=== PATIENT | male | born 1985 | race Caucasian/White ===

== ENCOUNTER 2022-07-01 14:17 | Emergency (ER) | payer OTHER, SELFPAY ==
--- NOTE | ~2022-07-01 | CT_ITS ---
EXAMINATION: CT facial bones w con DATE: 07/01/2022 18:28 INDICATION: Left periorbital swelling. TECHNIQUE: Computed tomography (CT) of the facial bones and maxillofacial region was performed with 7 5 mL Omnipaque 350 intravenous contrast. Automated exposure control and iterative reconstruction tech [employer] were employed. The dose-length product was 311.67 mGy-cm. COMPARISON: None. FINDINGS: There is left cheek soft tissue swelling. There are mildly enlarged left submandibular and left high internal jugular chain lymph nodes, likely reactive. The orbits are normal. There is mild m ucosal thickening in the paranasal sinuses. The mastoid air cells are normal. There are carious lesio ns involving most of the teeth. There are periapical lucencies around numerous teeth with breech of t he cortex of the alveolar process at numerous sites. Superficial to tooth 12, there is a 10 x 5 x 15 mm abscess. IMPRESSION: 1. Extensive dental disease with 10 x 5 x 15 mm abscess superficial to tooth 12. Reviewed, dictated and finalized at location [facility]. [facility] IMPRESSION: 1. Extensive dental disease with 10 x 5 x 15 mm abscess superficial to tooth 12 .
[2022-07-01 14:44] VITALS: BP 141/92; PULSE 105; RESP 18; TEMP 36.6; O2SAT 97
--- NOTE | 2022-07-01 17:27 | ED.GENADULT ---
HPI - General Adult General Chief complaint: Unspecified Stated complaint: facial swelling Time Seen by Provider: 07/01/22 17:19 History of Present Illness HPI narrative: 36-year-old male here for evaluation of swelling and pain around his left orbit. Patient states that he was diagnosed with a dental infection at outside hospital yesterday. He was given clindamycin and tramadol, but states that his symptoms have not improved. States that he woke up this morning with swelling around his left eye, worsening pain in his oral region. He denies visual changes, trismus, fevers, chills, nausea, vomiting. He has follow-up with a dentist but states he cannot wait due to pain. Related Data Allergies Allergy/AdvReac Type Severity Reaction Status Date / Time No Known Allergies Allergy Verified 07/01/22 17:22 Review of Systems Review of Systems: Gen.: Denies fevers or chills Eyes: Denies eye pain or visual change ENT: Reports left periorbital pain and swelling, left-sided facial swelling Respiratory: Denies shortness of breath or cough CV: Denies chest pain or palpitations GI: Denies abdominal pain nausea, emesis or diarrhea denies burning, urgency, frequency or hematuria Musculoskeletal: Denies back pain or muscle pain Neuro: Denies numbness, tingling, weakness or focal weakness Skin: Denies rash Except as documented, all other systems reviewed and negative [facility] Past Medical History Medical History Injury of gallbladder during surgery Social History Social History Smoking status: Never smoker Alcohol intake: current Exam Narrative: APPEARANCE: Uncomfortable appearing. Head: Normocephalic and atraumatic. EYES: Erythema and edema around the left orbit, extraocular movements are intact, no proptosis NOSE: No nasal drainage EARS: External ear normal in appearance THROAT: Poor dentition throughout. Patient has numerous cracked and carious teeth. No visible periapical abscess. No trismus. NECK: Supple. No adenopathy, no masses. RESPIRATORY: Airway patent, respirations nonlabored. Clear to auscultation bilaterally, no rales, rhonchi, wheezing. CARDIOVASCULAR: Regular rate and rhythm without murmurs, rubs, or gallops. ABDOMINAL: Normoactive bowel sounds. Soft, nontender, nondistended. No rebound tenderness or guarding. MUSCULOSKELETAL: Extremities are warm and well-perfused. Moves all extremities well. No edema. NEURO: Normal speech. No focal neurologic deficits. SKIN: Skin is warm and dry. No rashes. PSYCHIATRIC: Normal affect/mood. Course Vital Signs Vital signs: Vital Signs Temperature 97.8 F 07/01/22 14:44 Pulse Rate 105 H 07/01/22 14:44 Respiratory Rate 18 07/01/22 14:44 Blood Pressure 141/92 H 07/01/22 14:44 Pulse Oximetry 97 07/01/22 14:44 Oxygen Delivery Room Air 07/01/22 14:44 Temperature 97.8 F 07/01/22 14:44 Pulse Rate 105 H 07/01/22 14:44 Respiratory Rate 18 07/01/22 14:44 Blood Pressure 141/92 H 07/01/22 14:44 Pulse Oximetry 97 07/01/22 14:44 Oxygen Delivery Room Air 07/01/22 14:44 Procedures Abscess I/D oral: Date of Incision: 07/01/22 Time of Incision: 18:59 Side (if applicable): left (periapical abscess above tooth #12) Technique: needle aspiration Amount of fluid expressed (mL): 5 Irrigation: Yes I&D Results: Pus and Blood Medical Decision Making MDM Narrative Medical decision making narrative: 36-year-old male here for evaluation of left-sided facial swelling after being diagnosed with a dental abscess at outside hospital. Patient is tolerating his secretions, is nontoxic-appearing, although does have a significant amount of left-sided facial swelling. He has a white count of 11.9. His lactic is negative. He was given Toradol, fluids and antibiotics in the ED with marked improvement of this p
[2022-07-01 17:44] LABS: Basophils Absolute Auto 0.1 K/mm3 (0.0-0.1); Basophils Percent Auto 0.5 % (0.2-1.2); Eosinophils Percent Auto 0.3 % (0-4.4); Hematocrit 53.3 % (42.0-52.0); Immature Granulocyte Absolute 0.04 K/mm3 (0.00-0.031); Immature Granulocyte Percent A 0.3 % (0-0.5); Lymphocytes Absolute Auto 2.93 K/mm3 (0.9-3.2); Lymphocytes Percent Auto 24.7 % (18.3-44.2); Mean Corpuscular HGB Conc 35.6 g/dl (32-36); Mean Corpuscular Hemoglobin 30.5 pg (26-34); Mean Corpuscular Volume 85.7 fl (80-100); Mean Platelet Volume 10.7 fl (7.4-10.4); Monocytes Absolute Auto 1.4 K/mm3 (0.1-0.6); Monocytes Percent Auto 11.7 % (2.6-8.5); Neutrophils Absolute Auto 7.4 K/mm3 (1.3-6.7); Neutrophils Percent Auto 62.5 % (45.5-73.1); Platelet Count Result 188 k/mm3 (150-375); Red Blood Count 6.22 M/mm3 (4.6-6.20); Red Cell Distribution Width 12.8 % (11.5-14.5); White Blood Count 11.9 K/mm3 (4.5-10.0)
[2022-07-01] MEDS: KETOROLAC 15 MG/ML VIAL (*BKC) IV PUSH (17:49)
[2022-07-01 17:57] LABS: Alanine Aminotransferase 27 U/L (6-50); Albumin Level 4.6 g/dL (3.5-5.1); Alkaline Phosphatase 91 U/L (38-126); Anion Gap 8 mmol/L (8-16); Aspartate Amino Transferase 27 U/L (17-59); Bilirubin,Total 2.1 mg/dL (0.2-1.3); Blood Urea Nitrogen 13 mg/dL (9-20); Carbon Dioxide 28 mmol/L (22-30); Chloride 102 mmol/L (98-107); Estimated CRCL calculation 95 ml/min; Estimated Glomerular Filt Rate > 60; Glucose 100 mg/dL (65-110); Potassium 3.4 mmol/L (3.4-5.0); Sodium 138 mmol/L (137-145)
[2022-07-01 17:58] LABS: Lactic Acid Reflex 0.9 mmol/L (0.7-2.0)
[2022-07-01] MEDS: SODIUM CHLORIDE 0.9% IV 1,000 ML 999 ML IV CONT (18:13)
[2022-07-01] MEDS: AMPICILLIN SULB 1.5 GM/NS 50ML 1.5 GM/50 ML VIAL IVPB (18:43)
== END 2022-07-01 19:24 | disposition home or self-care (01) ==
PROVIDERS: Emergency Provider Physician Assistant
DX: K04.7 Periapical abscess without sinus (principal)
CPT/HCPCS: 36415; 41800; 70487; 80053; 83605; 85025; 96365; 96375; 99284; J0295; J1885; J7030; Q9967